=== PATIENT | female | born 1960 | race Caucasian/White ===

== ENCOUNTER 2021-10-10 11:41 | Emergency (ER) | payer OTHER ==
[2021-10-10 13:26] LABS: Absolute Lymphocytes (CBC) 0.8 K/uL (0.7-4.9); Hematocrit 50.6 % (36.0-45.0); Lymphocytes % 11.3 % (15.3-44.8); MPV 8.6 fL (7.6-11.3); RBC Red Blood Cell Count 5.72 M/uL (3.86-4.86)
[2021-10-10] MEDS ORDERED: NA CHLORIDE 0.9% 1,000 ML ONE (13:51)
[2021-10-10] MEDS ORDERED: ONDANSETRON 4 MG/2 ML VIAL ONE (13:51)
[2021-10-10 14:00] LABS: Albumin 3.9 g/dL (3.4-5.0); Bilirubin Total 0.4 mg/dL (0.2-1.0); Potassium 4.1 mmol/L (3.5-5.1); Protein, Total 8.1 g/dL (6.4-8.2)
--- NOTE | 2021-10-10 17:15 | ER ---
Nurse's Notes [facility] Name: Katia Benson Age: 60 yrs Sex: Female : 1960 Arrival Date: 10/10/2021 Time: 11:41 Bed 12 Private MD: Diagnosis: Diarrhea, unspecified;Nausea;Dehydration Presentation: 10/10 13:10 Chief complaint: Patient states: nausea and diarrhea. Initial Sepsis Screen: Does the iw patient meet any 2 criteria? No. Patient's initial sepsis screen is negative. Does the patient have a suspected source of infection? No. Patient's initial sepsis screen is negative. Risk Assessment: Do you want to hurt yourself or someone else? Patient reports no desire to harm self or others. 13:10 Method Of Arrival: Ambulatory iw 13:10 Acuity: JESSICA 3 iw Vital Signs: 13:24 BP 123 / 87; Pulse 95; Temp 97.8; Pulse Ox 96% ; Weight 108.86 kg; Height 5 ft. 5 in. tp1 (165.10 cm); 13:24 Body Mass Index 39.94 (108.86 kg, 165.10 cm) tp1 ED Course: 11:41 Patient arrived in ED. am2 12:42 [facility] 12:42 Markus Hernandez MD is Attending Physician. jr8 13:10 Pam Ortega RN is Primary Nurse. iw 13:10 Triage completed. iw 13:18 Inserted saline lock: 22 gauge in right antecubital area, using aseptic technique. tp1 Blood collected. Administered Medications: 13:52 Drug: NS 0.9% 1000 ml Route: IV; Rate: 1 bolus; Site: right antecubital; iw 17:30 Follow up: IV Status: Completed infusion iw 13:52 Drug: Zofran (Ondansetron) 4 mg Route: IVP; Site: right antecubital; iw 16:00 Follow up: Response: No adverse reaction iw Outcome: 17:15 Discharge ordered by . ashley 17:44 Patient left the ED. iw Signatures: Pam Ortega RN RN iw Remberto Kwok PA PA jr8 Geovanna Orozco am2 Jadyn Briseno tp1
--- NOTE | 2021-10-10 17:15 | EDPHYS ---
Physician Documentation [facility] Name: Katia Benson Age: 60 yrs Sex: Female : 1960 Arrival Date: 10/10/2021 Time: 11:41 Bed 12 Private MD: ED Physician Markus Hernandez HPI: 10/10 12:42 This 60 yrs old Female presents to ER via Unassigned with complaints of Nausea, jr8 Diarrhea. 12:42 The patient presents to the emergency department with nausea, with "dry heaves", jr8 diarrhea. Onset: The symptoms/episode began/occurred 5 day(s) ago. Possible causes: unknown. The symptoms are aggravated by food . Associated signs and symptoms: Pertinent negatives: abdominal pain, fever, GI bleeding. Severity of symptoms: At their worst the symptoms were moderate in the emergency department the symptoms are unchanged. The patient has not experienced similar symptoms in the past. The patient has not recently seen a physician. ROS: 12:42 Eyes: Negative for injury, pain, redness, and discharge, ENT: Negative for injury, jr8 pain, and discharge, Neck: Negative for injury, pain, and swelling, Cardiovascular: Negative for chest pain, palpitations, and edema, Respiratory: Negative for shortness of breath, cough, wheezing, and pleuritic chest pain, Back: Negative for injury and pain, MS/Extremity: Negative for injury and deformity, Skin: Negative for injury, rash, and discoloration, Neuro: Negative for headache, weakness, numbness, tingling, and seizure. 12:42 Abdomen/GI: Positive for nausea, vomiting, and diarrhea, abdominal cramps. Exam: 12:42 Constitutional: This is a well developed, well nourished patient who is awake, alert, jr8 and in no acute distress. Cardiovascular: Regular rate and rhythm with a normal S1 and S2. No gallops, murmurs, or rubs. Normal PMI, no JVD. No pulse deficits. Respiratory: Lungs have equal breath sounds bilaterally, clear to auscultation and percussion. No rales, rhonchi or wheezes noted. No increased work of breathing, no retractions or nasal flaring. Back: No spinal tenderness. No costovertebral tenderness. Full range of motion. Skin: Warm, dry with normal turgor. Normal color with no rashes, no lesions, and no evidence of cellulitis. MS/ Extremity: Pulses equal, no cyanosis. Neurovascular intact. Full, normal range of motion. Neuro: Awake and alert, GCS 15, oriented to person, place, time, and situation. Motor strength 5/5 in all extremities. Sensory grossly intact. 12:42 Abdomen/GI: Inspection: obese Bowel sounds: active, all quadrants, Palpation: abdomen is soft and non-tender, in all quadrants, Indicators: McBurney's point is not tender, Choudhary's sign is negative, Rovsing's sign is negative, Liver: tenderness, is not appreciated. Vital Signs: 13:24 BP 123 / 87; Pulse 95; Temp 97.8; Pulse Ox 96% ; Weight 108.86 kg; Height 5 ft. 5 in. tp1 (165.10 cm); 13:24 Body Mass Index 39.94 (108.86 kg, 165.10 cm) tp1 MDM: 12:51 Patient medically screened. jr8 17:14 Data reviewed: vital signs, nurses notes, lab test result(s), and as a result, I will jr8 discharge patient. Data interpreted: Pulse oximetry: on room air is 96 %. Interpretation: normal. Counseling: I had a detailed discussion with the patient and/or guardian regarding: the historical points, exam findings, and any diagnostic results supporting the discharge/admit diagnosis, lab results, the need for outpatient follow up, a family practitioner, to return to the emergency department if symptoms worsen or persist or if there are any questions or concerns that arise at home. Response to treatment: the patient's symptoms have markedly improved after treatment, patient is well hydrated. Special discussion: Based on the patient's Hx, exam, and Dx evaluation, there is no indication for emergent surgery or inpatient Tx. It is understood by the patient/guardian that if the Sx's persist or worsen they need to return immediately for re-evaluation. 17:15 ED course: Discussed with patient that she had mild elevation in her BUN consistent jr8 with mild dehydration otherwise no acute electrolyte abnormalities or other acute findings. Patient was not able to give us a stool sample for culture and O\\T\\P. Discussed with her that she needs to continue to vigorously hydrate. If at any point time she cannot keep fluids down to come back for further reevaluation. If she were to worsen otherwise any point time to come back for further evaluation. Otherwise needs to follow-up with her PCP in the next couple days.. 10/10 12:50 Order name: CBC with Diff; Complete Time: 13:34 jr8 10/10 12:50 Order name: CMP; Complete Time: 14:09 jr8 10/10 12:50 Order name: Lipase; Complete Time: 14:09 jr8 10/10 12:50 Order name: IV Saline Lock; Complete Time: 13:51 jr8 10/10 12:50 Order name: Labs collected and sent; Complete Time: 13:51 jr8 Administered Medications: 13:52 Drug: NS 0.9% 1000 ml Route: IV; Rate: 1 bolus; Site: right antecubital; iw 17:30 Follow up: IV Status: Completed infusion iw 13:52 Drug: Zofran (Ondansetron) 4 mg Route: IVP; Site: right antecubital; iw 16:00 Follow up: Response: No adverse reaction iw Disposition Summary: 10/10/21 17:15 Discharge Ordered Location: Home jr Problem: new jr8 Symptoms: have improved jr8 Condition: Stable jr8 Diagnosis - Diarrhea, unspecified jr8 - Nausea jr8 - Dehydration jr8 Followup: jr8 - With: Private Physician - When: 2 - 3 days - Reason: Recheck today's complaints, Continuance of care, Re-evaluation by your physician Discharge Instructions: - Discharge Summary Sheet jr8 - Food Choices to Help Relieve Diarrhea, Adult jr8 - Dehydration, Adult jr8 - Diarrhea, Adult jr8 - Nausea, Adult jr8 Forms: - Medication Reconciliation Form jr8 - Thank You Letter jr8 - Antibiotic Education jr8 - Prescription Opioid Use jr8 Prescriptions: - Zofran 4 mg Oral Tablet - take 1 tablet by ORAL route every 12 hours As needed; 20 tablet; Refills: 0, jr8 Product Selection Permitted Signatures: Dispatcher [employer] Pam Yo RN RN Remberto Barnhart PA PA jr8
[2021-10-10 19:18] VITALS: BP 123/87; TEMP 97.8; O2SAT 96
== END 2021-10-10 17:44 | disposition home or self-care (01) ==
LOC: ER 11:41
DX: E86.0 Dehydration (principal); R19.7 Diarrhea, unspecified
CPT/HCPCS: 85025; 36415; 83690; 80053; J7030; J2405; 96361; 96374; 99283